=== PATIENT | male | born 1995 | race Two or more races ===

== ENCOUNTER 2018-12-12 19:39 | Emergency (ER) | payer SELFPAY ==
[~2018-12-12] VITALS: Ht 165.1 cm; Wt 68.0 kg
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
[2018-12-12] MEDS ORDERED: HYDROcodone/Acetamin 5/325 tab ONE (21:55)
[2018-12-12] MEDS ORDERED: HYDROcodone/Acetamin 5/325 tab ORAL ONE (22:00)
[2018-12-12] MEDS ORDERED: Bacitracin Oint UD TOPIC ONE (22:15)
[2018-12-12] MEDS ORDERED: HYDROCODON-ACE1 EA15 ORAL (22:30)
[2018-12-12] MEDS ORDERED: IBUPROFEN600 MG ORAL (22:31)
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
[2018-12-12 22:32] VITALS: BP 125/67
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
== END 2018-12-12 22:32 | disposition home or self-care (01) ==
LOC: EMR 21:42
DX: S80.02XA Contusion of left knee, initial encounter (principal); S80.12XA Contusion of left lower leg, initial encounter; V23.4XXA Motorcycle driver injured in collision with car, pick-up truck or van in traffic accident, initial encounter; Y92.410 Unspecified street and highway as the place of occurrence of the external cause
CPT/HCPCS: 29505; 99283